=== PATIENT | female | born 1985 | race Caucasian/White ===

== ENCOUNTER 2018-05-20 19:41 | Emergency (ER) | payer MEDICAID ==
[~2018-05-20] VITALS: Ht 152.4 cm; Wt 53.8 kg
[2018-05-20 22:51] VITALS: BP 113/66
== END 2018-05-20 22:51 | disposition home or self-care (01) ==
LOC: ED 19:41
DX: M54.9 Dorsalgia, unspecified (principal)

== ENCOUNTER 2018-09-26 17:50 | Emergency (ER) | payer SELFPAY ==
[~2018-09-26] VITALS: Ht 152.4 cm; Wt 56.7 kg
[2018-09-26 18:05] VITALS: Ht 152.4 cm; Wt 56.7 kg
[2018-09-26 20:47] VITALS: BP 107/71
== END 2018-09-26 20:47 | disposition home or self-care (01) ==
LOC: ED 17:50
DX: G56.01 Carpal tunnel syndrome, right upper limb (principal); R20.2 Paresthesia of skin